=== PATIENT | female | born 1995 | race Hispanic/Latino ===

== ENCOUNTER 2024-12-14 02:21 | Emergency (ER) | payer SELFPAY ==
[2024-12-14 02:23] VITALS: BP 99/58; PULSE 78; RESP 16; TEMP 36.7; O2SAT 99
--- OUTSIDE RECORDS SUMMARY | 2024-12-14 02:24 | XMS_ITS | Clinical Summary ---
Author Organization [facility] Address [address] [place] [address] Care Team Providers Care Circuit Judge Name Role Phone Unavailable Primary Care Provider Unavailabl e Social History Tobacco Use Types Packs/Day Years Used Date Smoking Tobacco: Never Assessed Comments Unknown Sex and Gender Information Value Date Recorded Sex Assigned at Not on file Legal Sex Female 11:11 PM CDT Gender Identity Not on file Sexual Orientation Not on file Last Filed Vital Signs Vital Sign Reading Time Taken Comments Blood Pressure 100/70 11/17/2015 2:30 PM CODING COMPLIANCE AUDITOR Pulse 69 11/17/2015 2:30 PM CODING COMPLIANCE AUDITOR Temperature - - Respiratory Rate - - Oxygen Saturation - - Inhaled Oxygen Concentration - - Weight 51.5 kg (113 lb 9 oz) 11/17/2015 2:30 PM CODING COMPLIANCE AUDITOR Height 152.4 cm (5') 11/17/2015 2:30 PM CODING COMPLIANCE AUDITOR Body Mass Index 22.18 11/17/2015 2:30 PM CODING COMPLIANCE AUDITOR Plan of Treatment Health Maintenance Due Date Last Done Comments Cervical Cancer Screening Pa p Smear (Age 21 to 29) Every 3 Years 1995 Cervical Cancer Screening 1995 Annual Physical 1998 Hepatitis C 2013 DTaP, Tdap and Td Vaccines ( 1 - Tdap) 2014 Hepatitis B Vaccines (1 of 3 - 19+ 3-dose series) 2014 COVID-19 Vaccine (2023-2 5 season) 2024 Influenza Adult (#1) 2024 HPV Vaccines Aged Out No longer eligi ble based on patient's age to complete this topic Meningococcal B Vaccine Aged Out No l onger eligible based on patient's age to complete this topic Meningococcal Vaccine Aged Out No jazmine yolis eligible based on patient's age to complete this topic Pneumococcal Vaccine: Pediat rics (0 to 5 Years) and At-Risk Patients (6 to 64 Years) Aged Out No longer eligible b ased on patient's age to complete this topic RSV Immunizations Under 20 Months Aged Out No longer eligible based on patient's age to complete this topic
--- OUTSIDE RECORDS SUMMARY | 2024-12-14 02:24 | XMS_ITS | Encounter Summary ---
Author Organization [facility] Address [address] [place] [address] Care Team Providers Care Railroad Accountant Name Role Phone Unavailable Primary Care Provider Unavailabl e Encounter Details Date Type Department Care Team (Late st Contact Info) Description 10/11/2016 Abstract SJB CONVERSION [address] [place] [address] , Generic Conversion, Social History Tobacco Use Types Packs/Day Years Used Date Smoking Tobacco: Never Assessed Comments Unknown Sex and Gender Information Value Date Recorded Sex Assigned at Not on file Legal Sex Female 11:11 PM CDT Gender Identity Not on file Sexual Orientation Not on file documented as of this encounter Plan of Treatment Not on file documented as of this encounter Visit Diagnoses Not on filedocumented in this encounter
--- OUTSIDE RECORDS SUMMARY | 2024-12-14 02:24 | XMS_ITS | Patient Health Summary ---
Author Organization [facility] Address [address] [place] [address] Care Team Providers Care Database Management System Specialist Name Role Phone Unavailable Primary Care Provider Unavailabl e Note from [facility],non-owned Affiliates and Associated Physician Practices is amultiple site organization consisting of ambulatory clinics and hospital sitesin [place], [place], [place] and [place]. This disclosure is being madepursuant to the Care Everywhere program and may not contain all information available regarding this patient. 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 Social History Tobacco Use Types Packs/Day Years Used Date Smoking Tobacco: Never Smokeless Tobacco: Never Alcohol Use Standard Drinks/Week Comments No 0 (1 standard drink = 0.6 oz pur e alcohol) Sex and Gender Information Value Date Recorded Sex Assigned at Not on file Gender Identity Not on file Sexual Orientation Not on file Last Filed Vital Signs Vital Sign Reading Time Taken Comments Blood Pressure 110/59 05/12/2015 2:01 PM CDT Pulse 77 05/12/2015 2:01 PM CDT Temperature 36.3 C (97.3 F) 05/07/2015 8:42 AM CDT Respiratory Rate 16 05/07/2015 8:42 AM CDT Oxygen Saturation 100% 05/07/2015 11:00 AM CDT Inhaled Oxygen Concentration - - Weight 49 kg (108 lb) 05/10/2016 2:05 PM CDT Height 154.9 cm (5' 1 ) 05/10/2016 2:05 PM CDT Body Mass Index 20.41 05/10/2016 2:05 PM CDT Procedures * HCG URINE QUALITATIVE - POCT (IP) [facility](Performed 05/10/2016) * HCG URINE QUALITATIVE - POCT (IP) [facility](Performed 05/07/2015) Results * (ABNORMAL) HCG URINE QUALITATIVE - POCT (IP) [facility] (05/10/2016 2:19 PM CDT) Only the most recent of2 resultswithin the time period is included. POSITIVE(A ) CONSTANZA LUNDY ([place]) Comment:Processing Associate: CHANDAN MEJIA 05/10/2016 2:19 PM CDT Myke Yao MD LAB - POINT OF CARE ORDERABLES [facility] KAM[employer] ARELLANO)
--- OUTSIDE RECORDS SUMMARY | 2024-12-14 02:24 | XMS_ITS | Referral Summary ---
Author Organization [facility] Address [address] [place] [address] Care Team Providers Care Rehabilitation Case Coordinator Name Role Phone Unavailable Primary Care Provider Unavailabl e Source Comments [facility],non-owned Affiliates and Associated Physician Practices is amultiple site organization consisting of ambulatory clinics and hospital sitesin [place], [place] and [place]. This disclosure is being madepursuant to the Care Everywhere program and may not contain all information available regarding this patient. Last updated 18.[facility] [employer] [facility] Allergies Active Allergy Reactions Criticality Noted Date Comments Metoclopramide Other Low 05/07/2015 Per EMS. Pts family states she had a strong reaction to Reglan Active Problems Problem Noted Date Diagnosed Date [...] Mass Index 20.41 05/10/2016 2:05 PM CDT Plan of Treatment Not on file
--- OUTSIDE RECORDS SUMMARY | 2024-12-14 02:24 | XMS_ITS | Clinical Summary ---
Author Organization [facility] Address [address] [place] [address] Care Team Providers Care Air Crew Officer Name Role Phone Unavailable Primary Care Provider Unavailabl e Source Comments [facility],non-owned Affiliates and Associated Physician Practices is amultiple site organization consisting of ambulatory clinics and hospital sitesin [place], [place], [place] and [place]. This disclosure is being madepursuant to the Care Everywhere program and may not contain all information available regarding this patient. Last updated 18.[facility] [employer] Allergies Active Allergy Reactions Criticality Noted Date [...] 05/10/2016 2:05 PM CDT Plan of Treatment Health Maintenance Due Date Last Done Comments PAP SMEAR 1995 HIV SCREENING 2010 HEPATITIS C SCREENING 03/13/2013 DTAP/TDAP/TD VACCINES (1 - Tdap) 2014 HEPATITIS B VACCINE (1 of 3 - 19+ 3-dose series) 2014 COVID-19 VACCINE (1 - 2023-2 5 season) 2024 INFLUENZA VACCINE (#1) 2024 DEPRESSION SCREENING 10/02/2024 ZOSTER VACCINE (1 of 2) 2045 HIB VACCINE Aged Out No longer eligi ble based on patient's age to complete this topic HPV VACCINE Aged Out No longer eligi ble based on patient's age to complete this topic MENINGOCOCCAL (Group B) VACC INE SHARED DECISION-MAKING Aged Out No longer eligibl e based on patient's age to complete this topic MENINGOCOCCAL GROUPS A/C/Y/W VACCINE Aged Out No longer eligible b ased on patient's age to complete this topic PNEUMOCOCCAL VACCINE Aged Out No long er eligible based on patient's age to complete this topic
--- NOTE | 2024-12-14 03:06 | PC.NURSE ---
Pt ambulatory to triage desk stating she was going to leave d/t wait times and amount of pt in waiting room. pt instructed to follow up w pcp or another healthcare professional if sx persist. pt ambualtory out of dept w steady gait.
--- OUTSIDE RECORDS SUMMARY | 2024-12-14 03:24 | XMS_ITS | Referral Summary ---
Author Organization [facility] Address [address] [place] [address] Care Team Providers Care Composing Room Supervisor Name Role Phone Unavailable Primary Care Provider Unavailabl e Source Comments [facility],non-owned Affiliates and Associated Physician Practices is amultiple site organization consisting of ambulatory clinics and hospital sitesin [place], [place], [place] and [place]. This disclosure is being madepursuant to the Care Everywhere program and may not contain all information available regarding this patient. Last updated 18.[facility] [employer] Allergies Active Allergy Reactions Criticality Noted Date [...]
--- OUTSIDE RECORDS SUMMARY | 2024-12-14 03:24 | XMS_ITS | Patient Health Summary ---
Author Organization [facility] Address [address] [place] [address] Care Team Providers Care Dependency Counselor Name Role Phone Unavailable Primary Care Provider Unavailabl e Note from [facility],non-owned Affiliates and Associated Physician Practices is amultiple site organization consisting of ambulatory clinics and hospital sitesin [place], [place], [place] and [place]. This disclosure is being madepursuant to the Care Everywhere program and may not contain all information available regarding this patient. Last updated 18.[facility] Allergies * Metoclopramide(Other) -Low Criticality Active Problems [...] (ABNORMAL) HCG URINE QUALITATIVE - POCT (IP) [facility] (05/10/2016 2:19 PM CDT) Only the most recent of2 resultswithin the time period is included. POSITIVE(A ) CONSTANZA LUNDY ([place]) Comment:Cartridge Loader: CHANDAN MEJIA 05/10/2016 2:19 PM CDT Myke Yao MD LAB - POINT OF CARE ORDERABLES [facility] KAMRON ARELLANO)
--- OUTSIDE RECORDS SUMMARY | 2024-12-14 03:24 | XMS_ITS | Clinical Summary ---
Author Organization [facility] Address [address] [place] [address] Care Team Providers Care Order Clerk Name Role Phone Unavailable Primary Care Provider [...] Comments Blood Pressure 100/70 11/17/2015 2:30 PM MANUFACTURING SPECIALIST Pulse 69 11/17/2015 2:30 PM MANUFACTURING SPECIALIST Temperature - - Respiratory Rate - - Oxygen Saturation - - Inhaled Oxygen Concentration - - Weight 51.5 kg (113 lb 9 oz) 11/17/2015 2:30 PM MANUFACTURING SPECIALIST Height 152.4 cm (5') 11/17/2015 2:30 PM MANUFACTURING SPECIALIST Body Mass Index 22.18 11/17/2015 2:30 PM MANUFACTURING SPECIALIST Plan of Treatment Health Maintenance Due Date [...]
--- OUTSIDE RECORDS SUMMARY | 2024-12-14 03:24 | XMS_ITS | Encounter Summary ---
Author Organization [facility] Address [address] [place] [address] Care Team Providers Care Appliance Servicer Name Role Phone Unavailable Primary Care Provider Unavailabl e Encounter Details Date Type Department Care Team (Late st Contact Info) Description 10/11/2016 Abstract SJB CONVERSION [address] [place] [address] , Generic Conversion, Social History Tobacco Use [...]
--- OUTSIDE RECORDS SUMMARY | 2024-12-14 03:24 | XMS_ITS | Clinical Summary ---
Author Organization [facility] Address [address] [place] [address] Care Team Providers Care Structural Metal Fabricator Apprentice Name Role Phone Unavailable Primary Care Provider Unavailabl e Source Comments [facility],non-owned Affiliates and Associated Physician Practices is amultiple site organization consisting of ambulatory clinics and hospital sitesin [place], [place], [place] and [place]. This disclosure is being madepursuant to the Care Everywhere program and may not contain all information available regarding this patient. Last updated 18.[facility] [employer] Allergies Active Allergy Reactions Criticality Noted Date [...]
== END 2024-12-14 04:00 | disposition left against medical advice (07) ==
LOC: ANHED 03:22
DX: O26.891 Other specified pregnancy related conditions, first trimester (principal); R10.30 Lower abdominal pain, unspecified; Z3A.01 Less than 8 weeks gestation of pregnancy
CPT/HCPCS: 99199

== ENCOUNTER 2025-08-03 19:59 | Emergency (ER) | payer SELFPAY ==
[2025-08-03 20:09] VITALS: BP 110/51; PULSE 91; RESP 20; TEMP 36.6; O2SAT 100
--- NOTE | 2025-08-03 22:09 | PC.NURSE ---
PT STATES THAT SHE CAN'T WAIT ANY LONGER FOR AN AVAILABLE BED TO OPEN FOR HER AND SHE WILL GO TO ANOTHER HOSPITAL. AMBULATORY FROM THE ED WITH A STEADY GAIT.
--- OUTSIDE RECORDS SUMMARY | 2025-08-03 22:23 | XMS_ITS | Clinical Summary ---
Author Organization [facility] Address [address] [place] [address] Care Team Providers Care Behavioral Pediatrician Name Role Phone Unavailable Primary Care Provider Unavailabl e Source Comments [facility],non-owned Affiliates and Associated Physician Practices is amultiple site organization consisting of ambulatory clinics and hospital sitesin [place], [place], [place] and [place]. This disclosure is being madepursuant to the Care Everywhere program and may not contain all information available regarding this patient. Last updated 18.[facility] [employer] Allergies Active Allergy Reactions Criticality Noted Date [...] drink = 0.6 oz pur e alcohol) Comments Unknown Sex and Gender Information Value Date Recorded Sex Assigned at Not on file Legal Sex Female 5:54 PM SCREEN CLEANER Gender Identity Not on file Sexual Orientation [...] 2:05 PM CDT Height 154.9 cm (5' 1) 05/10/2016 2:05 PM CDT Body Mass Index 20.41 05/10/2016 2:05 PM CDT Plan of Treatment Health Maintenance Due Date Last Done Comments HIV SCREENING 2010 HEPATITIS C SCREENING 03/13/2013 DTAP/TDAP/TD VACCINES (1 - Tdap) 2014 HEPATITIS B VACCINE (1 of 3 - 19+ 3-dose series) 2014 HPV VACCINE (1 - 3-dose SCDM series) 2022 DEPRESSION SCREENING 10/02/2024 COVID-19 VACCINE (1 - 2023-2 5 season) 2025 INFLUENZA VACCINE (#1) 2025 ZOSTER VACCINE (1 of 2) 2045 HIB [...]
--- OUTSIDE RECORDS SUMMARY | 2025-08-03 22:23 | XMS_ITS | Clinical Summary ---
Author Organization [facility] Address [address] [place] [address] Care Team Providers Care Head Buyer Tobacco Name Role Phone Veronica Kaufman SQUILGEER Primary Care Provider + Social History Tobacco Use Types Packs/Day Years Used Date Smoking Tobacco: Never Assessed Comments Unknown Sex and Gender Information Value Date Recorded Sex Assigned at Not on file Legal Sex Female 9:44 AM CDT Gender Identity Not on file Sexual Orientation Not on file Plan of Treatment Not on file Care Teams Head Buyer Tobacco Relationship Specialty Start Date End Date Veronica Kaufman, SQUILGEER [address] [place] [address] PCP - General 12/17/12
== END 2025-08-03 22:27 | disposition left against medical advice (07) ==
LOC: ANHED 22:21
DX: R10.31 Right lower quadrant pain (principal)
CPT/HCPCS: 99199